=== PATIENT | male | born 1955 | race Two or more races ===

== ENCOUNTER 2024-02-13 08:45 | Emergency (ER) | payer OTHER ==
[~2024-02-13] VITALS: Ht 162.6 cm; Wt 72.1 kg
[2024-02-13 09:10] VITALS: PULSE 80; RESP 13; O2SAT 98
[2024-02-13] MEDS: hydrALAZINE HCL 20 MG/ML VL IV ONE (09:26)
[2024-02-13 09:33] LABS: Basophils # (auto) 0.1 10 ^3/uL (0-0.2); Basophils % (auto) 0.7 % (0.0-2.0); Eosinophils # (auto) 0.1 10 ^3/uL (0-0.8); Eosinophils % (auto) 0.9 % (0.0-7.0); Hematocrit 45.3 % (41.0-53.0); Lymphocytes # (auto) 1.6 10 ^3/uL (0.4-5.4); Lymphocytes % (auto) 18.7 % (10.0-50.0); Mean Corpuscular Hgb Conc. 35.3 g/dL (32.0-36.0); Mean Corpuscular Volume 90.5 fL (80.0-100.0); Monocytes # (auto) 0.7 10 ^3/uL (0-1.3); Neutrophils % (auto) 71.7 % (37.0-80.0); Nucleated Red Blood Cells % 0.1 %; Red Blood Cells 5.01 10^6/uL (4.5-5.90); Red Cell Distribution Width 13.5 % (11.8-14.3); White Blood Cell 8.4 10^3/uL (4.4-10.8)
[2024-02-13 09:49] LABS: Chloride 106 mmol/L (98-107); Sodium 139 mmol/L (136-145)
[2024-02-13 09:50] LABS: Anion Gap 6 (5-15); Calcium 10.5 mg/dL (8.7-10.4); Carbon Dioxide 27 mmol/L (20-30)
[2024-02-13 09:55] LABS: BUN/Creatinine Ratio 12.3 (10.0-20.0); Blood Urea Nitrogen 14 mg/dL (9-23); Glucose 107 mg/dL (74-106)
[2024-02-13] MEDS ORDERED: NITROGLYCERIN 0.4 MG SL TAB SL PRN (13:15)
[2024-02-13] MEDS ORDERED: DOCUSATE SOD 100 MG CAP PO PRN (13:15)
[2024-02-13] MEDS ORDERED: MORPHINE SULFATE INJ 2 MG/ml SYRG IV PRN (13:15)
[2024-02-13] MEDS ORDERED: ONDANSETRON HCL 4 MG/2 ML VIAL IV PRN (13:15)
[2024-02-13] MEDS ORDERED: TEMAZEPAM 15 MG CAP PO PRN (13:15)
[2024-02-13 13:22] LABS: Urine Bacteria None Seen /hpf (None Seen); Urine WBC None Seen /hpf (0 - 3)
[2024-02-13 13:27] LABS: Urine Blood Negative /uL (Negative); Urine Clarity Clear (Clear); Urine Color Light-Yellow (Yellow); Urine Protein, UAD Negative (Negative); Urine Specific Gravity 1.003 (1.001-1.035); Urine Urobilinogen Normal (Negative)
[2024-02-13 16:05] VITALS: PULSE 82; RESP 16; O2SAT 97
[2024-02-13] MEDS: hydrALAZINE HCL 20 MG/ML VL IV PRN (16:32)
[2024-02-13 19:30] VITALS: PULSE 90; RESP 21; O2SAT 96
[2024-02-13 20:57] VITALS: BP 142/82; PULSE 90; RESP 21; TEMP 97.9; O2SAT 96
== END 2024-02-13 21:04 | disposition admitted as inpatient to this hospital (09) ==
LOC: ER 08:45 → EDBD 08:45 → UNDOADMIN 13:08 → TELE 13:08 → ER 13:08
DX: I16.1 Hypertensive emergency (principal); E83.52 Hypercalcemia; E78.5 Hyperlipidemia, unspecified
CPT/HCPCS: 36415; 80048; 81001; 84484; 85025; 96374; 96376; 99285; J0360; 93005; 99291

== ENCOUNTER 2024-07-28 00:49 | Inpatient (IN) | payer OTHER, MEDICARE ==
[2024-07-28] VITALS (7 sets, daily range): BP systolic 141–160; BP diastolic 70–81; PULSE 61–88; RESP 14–18; TEMP 98–98.4; O2SAT 93–98
[~2024-07-28] VITALS: Ht 170.2 cm; Wt 77.0 kg
[2024-07-28] MEDS: ONDANSETRON HCL 4 MG/2 ML VIAL IV ONE (01:49)
[2024-07-28] MEDS: LORazepam 2MG/ML-1ML VIAL IV ONE (01:49)
[2024-07-28] MEDS: MECLIZINE HCL 25 MG TAB PO ONE (01:50)
[2024-07-28] MEDS: SODIUM CHLORIDE 0.9% 1,000 ML IV ONE (01:52)
[2024-07-28 02:14] LABS: Basophils # (auto) 0 10 ^3/uL (0-0.2); Basophils % (auto) 0.4 % (0.0-2.0); Eosinophils # (auto) 0.1 10 ^3/uL (0-0.8); Eosinophils % (auto) 0.5 % (0.0-7.0); Hematocrit 44.3 % (41.0-53.0); Lymphocytes # (auto) 1.1 10 ^3/uL (0.4-5.4); Lymphocytes % (auto) 7.7 % (10.0-50.0); Mean Corpuscular Hemoglobin 30.9 pg (28.0-32.0); Mean Corpuscular Hgb Conc. 33.8 g/dL (32.0-36.0); Mean Corpuscular Volume 91.5 fL (80.0-100.0); Monocytes # (auto) 0.8 10 ^3/uL (0-1.3); Monocytes % (auto) 5.7 % (0.0-12.0); Neutrophils # (auto) 11.7 10 ^3/uL (1.6-8.6); Neutrophils % (auto) 85.7 % (37.0-80.0); Nucleated Red Blood Cells % 0.2 %; Platelet Count (auto) 226 10^3/uL (140-450); Red Blood Cells 4.84 10^6/uL (4.5-5.90); Red Cell Distribution Width 13.2 % (11.8-14.3); White Blood Cell 13.6 10^3/uL (4.4-10.8)
[2024-07-28 02:22] LABS: Urine Bacteria None Seen /hpf (None Seen); Urine WBC None Seen /hpf (0 - 3)
[2024-07-28 02:23] LABS: Potassium 3.8 mmol/L (3.5-5.1); Sodium 144 mmol/L (136-145)
[2024-07-28 02:24] LABS: Anion Gap 8 (5-15); Calcium 10.2 mg/dL (8.7-10.4); Carbon Dioxide 28 mmol/L (20-31)
[2024-07-28 02:27] LABS: Chloride 108 mmol/L (98-107)
[2024-07-28 02:32] LABS: Urine Blood Negative /uL (Negative); Urine Budding Yeast OCCASIONAL /hpf (None Seen); Urine Clarity Turbid (Clear); Urine Color Light-Yellow (Yellow); Urine Protein, UAD Negative (Negative); Urine Specific Gravity 1.017 (1.001-1.035); Urine Squamous Epithelial Cell None Seen /hpf (<5); Urine Urobilinogen Normal (Negative)
[2024-07-28 02:32] LABS: Blood Urea Nitrogen 26 mg/dL (9-23); Glucose 132 mg/dL (74-106)
--- NOTE | 2024-07-28 02:35 | ED.PDOC ---
History of Present Illness HPI Comments 69-year-old male brought in by EMS due to dizziness. Patient has history of hypertension and vertigo. Patient states he woke up from sleep late afternoon, felt like the room was spinning, causing him to fall to the floor. Patient states he was too dizzy to ambulate, so crawled to the restroom and vomited multiple times. He states any head or eye movement reproduces the symptoms and causes nausea and vomiting. He denies any pain, diarrhea, constipation, dysuria, sick contacts or fever. He denies any focal weakness. Blood pressure upon arrival was 185/79 mmHg Chief Complaint: Dizziness Time Seen by MD: 02:35 Primary Care Provider: MAGNOLIA Reviewed Notes: Nurses Notes Allergies: Coded Allergies: NO KNOWN ALLERGIES (Unverified , 02/13/24) Information Source: Patient Mode of Arrival: EMS Severity: Moderate Timing: Hours Duration: Since onset Prehospital treatment: None Past Medical History PAST MEDICAL HISTORY: High Lipids, HTN Past Medical History (Other): Vertigo Surgical History: Appendectomy Family History Family History: Reviewed,noncontributory to illness Social History Smoker: Non-Smoker Alcohol: Denies ETOH Use Drugs: Denies Drug Use Lives In: Home Constitutional: denies: chills, diaphoresis, fatigue, fever, malaise, sweats, weakness, others EENTM: denies: blurred vision, double vision, ear bleeding, ear discharge, ear drainage, ear pain, ear ringing, eye pain, eye redness, hearing loss, mouth pain, mouth swelling, nasal discharge, nose bleeding, nose congestion, nose pain, photophobia, tearing, throat pain, throat swelling, voice changes, others Respiratory: denies: cough, hemoptysis, orthopnea, SOB at rest, shortness of breath, SOB with excertion, stridor, wheezing, others Cardiovascular: denies: chest pain, dizzy spells, diaphoresis, Dyspnea on exertion, edema, irregular heart beat, left arm pain, lightheadedness, palpitations, PND, syncope, others Gastrointestinal: reports: nausea, vomiting; denies: abdomen distended, abdomin al pain, blood streaked bowels, constipated, diarrhea, dysphagia, difficulty swallowing, hematemesis, melena, poor appetite, poor fluid intake, rectal bleeding, rectal pain, others Genitourinary: denies: burning, dysuria, flank pain, frequency, hematuria, incontinence, penile discharge, penile sore, pain, testicle pain, testicle swelling, urgency, others Neurological: reports: dizziness; denies: fainting, headache, left sided numbness, left sided weakness, numbness, paresthesia, pre-existing deficit, right sided numbness, right sided weakness, seizure, speech problems, tingling, tremors, weakness, others Musculoskeletal: denies: back pain, gout, joint pain, joint swelling, muscle pain, muscle stiffness, neck pain, others Integumetry: denies: bruises, change in color, change in hair/nails, dryness, laceration, lesions, lumps, rash, wounds, others Allergic/Immunocompromised: denies: Difficulty Healing, Frequent Infections, Hives, Itching, others Hematologic/Lymphatic: denies: anemia, blood clots, easy bleeding, easy bruising, swollen glands, others Endocrine: denies: excessive hunger, excessive sweating, excessive thirst, excessive urination, flushing, intolerance to cold, intolerance to heat, unexplained weight gain, unexplained weight loss, others Psychiatric: denies: anxiety, bipolar disorder, depression, hopeless, panic disorder, schizophrenia, sleepless, suicidal, others Physical Exam General Appearance: Mild Distress HEENT: PERRL/EOMI, Other (Dry mucous membranes) Neck: Full Range of Motion, Normal Inspection Respiratory: Lungs Clear, No Accessory Muscle Use, No Respiratory Distress, Normal Breath Sounds Cardiovascular: No Edema, No JVD, Regular Rate/Rhythm Breast Exam: Deferred Gastrointestinal: Non Tender, Soft Genitalia: Deferred Pelvic: Deferred Rectal: Deferred Extremities: Normal inspection, Normal range of motion, Non-tender, No pedal edema Neurologic: Alert (Oriented x4), Normal Affect, Normal Mood, Other (Moves all extremities with adequate strength and tone. No gross focal deficit. Head movement reproduces dizziness and nausea. Lateral nystagmus.) Cerebellar Function: NOT DONE Reflexes: NOT DONE Skin: Dry, Normal Color, Warm Lymphatic: NOT DONE Was a procedure done? Was a procedure done?: No EKG EKG : Comments Sinus rhythm, rate 60, normal VA interval, QRS 161, QTC normal, normal axis, right bundle-branch block, nonspecific T change. Differential Dx Considerations may include: CVA, TIA, positional vertigo, anemia, infection, electrolyte imbalance, arrhythmia, among others X-Ray, Labs, Meds, VS Vital Signs Date Time Temp Pulse Resp B/P (MAP) Pulse Ox O2 Delivery O2 Flow Rate FiO2 07/28/24 03:00 58 13 144/65 (91) 92 07/28/24 01:30 16 98 Room Air* 0 21 07/28/24 01:21 97.6 60 16 185/79 (114) 96 97.6 07/28/24 00:54 98.7 60 18 168/81 (110) 99 07/28/24 00:52 60 Lab Test 07/28/24 02:52 07/28/24 01:50 07/28/24 00:08 Range/Units Troponin I High Sensitivity 7 10 </=54 ng/L White Blood Count 13.6 H 4.4-10.8 10^3/uL Red Blood Count 4.84 4.5-5.90 10^6/uL Hemoglobin 15.0 13.5-17.5 g/dL Hematocrit 44.3 41.0-53.0 % Mean Corpuscular Volume 91.5 80.0-100.0 fL Mean Corpuscular Hemoglobin 30.9 28.0-32.0 pg Mean Corpuscular Hemoglobin Concent 33.8 32.0-36.0 g/dL Red Cell Distribution Width 13.2 11.8-14.3 % Platelet Count 226 140-450 10^3/uL Mean Platelet Volume 9.0 6.9-10.8 fL Neutrophils (%) (Auto) 85.7 H 37.0-80.0 % Lymphocytes (%) (Auto) 7.7 L 10.0-50.0 % Monocytes (%) (Auto) 5.7 0.0-12.0 % Eosinophils (%) (Auto) 0.5 0.0-7.0 % Basophils (%) (Auto) 0.4 0.0-2.0 % Neutrophils # (Auto) 11.7 H 1.6-8.6 10 ^3/uL Lymphocytes # (Auto) 1.1 0.4-5.4 10 ^3/uL Monocytes # (Auto) 0.8 0-1.3 10 ^3/uL Eosinophils # (Auto) 0.1 0-0.8 10 ^3/uL Basophils # (Auto) 0 0-0.2 10 ^3/uL Nucleated Red Blood Cells 0.2 % Sodium Level 144 136-145 mmol/L Potassium Level 3.8 3.5-5.1 mmol/L Chloride Level 108 H 98-107 mmol/L Carbon Dioxide Level 28 20-31 mmol/L Anion Gap 8 5-15 Blood Urea Nitrogen 26 H 9-23 mg/dL Creatinine 1.24 0.700-1.30 mg/dL Glomerular Filtration Rate Calc 64 >90 mL/min BUN/Creatinine Ratio 21.0 H 10.0-20.0 Serum Glucose 132 H 74-106 mg/dL Calcium Level 10.2 8.7-10.4 mg/dL B-Type Natriuretic Peptide 16.41 0-100 pg/mL Urine Color Light-yellow Yellow Urine Clarity Turbid H Clear Urine pH 8.0 5.0-9.0 Urine Specific [place] 1.017 1.001-1.035 Urine Protein Negative Negative Urine Ketones Negative Negative Urine Blood Negative Negative /uL Urine Nitrite Negative Negative Urine Bilirubin Negative Negative Urine Urobilinogen Normal Negative mg/dL Urine Leukocyte Esterase Negative Negative /uL Urine RBC 1 0 - 3 /hpf Urine WBC None seen 0 - 3 /hpf Urine Squamous Epithelial Cells None seen <5 /hpf Urine Bacteria None seen None Seen /hpf Urine Yeast (Budding) Occasional None Seen /hpf Urine Glucose Normal Normal mg/dL Current Medications Medications (Trade) Dose Ordered Sig/Erik Route Start Time Stop Time Status Last Admin Sodium Chloride 1,000 ml @ 1,000 mls/hr Q1H ONCE IV 07/28/24 01:45 07/28/24 02:44 DC 07/28/24 01:52 Ondansetron HCl (Zofran) 4 mg ONCE ONCE IV 07/28/24 01:45 07/28/24 01:46 DC 07/28/24 01:49 Lorazepam (Ativan Inj) 1 mg ONCE ONCE IV 07/28/24 01:45 07/28/24 01:46 DC 07/28/24 01:49 Meclizine HCl (Antivert Tablet) 50 mg ONCE ONCE PO 07/28/24 01:45 07/28/24 01:46 DC 07/28/24 01:50 PROCEDURE(s): HWOCT - HEAD WITHOUT CONTRAST REASON: dizziness ORDER NUMBER(s): [id number], ACCESSION NUMBER(s): [id number] Examination: HWOCT CLINICAL INDICATION: Dizziness. COMPARISON: None. CONTRAST USED: None. TECHNIQUE: The examination was performed obtaining 5 mm slices without contrast. CT scan done according to ALARA (As Low as Reasonably Achievable). Multiplanar reconstructions were obtained. FINDINGS: SUPRATENTORIAL BRAIN: Cerebral Hemispheres: Age appropriate neuroparenchymal volume loss is seen. There is no midline shift or mass effect, intra or extra-axial fluid collections or hemorrhage. Periventricular White Matter/Basal Ganglia: Periventricular and deep white matter small vessel ischemic changes are seen. No abnormal areas of altered attenuation within the basal ganglia. POSTERIOR FOSSA: The brainstem is normal and the visualized cerebellar hemispheres are unremarkable. VENTRICULAR SYSTEM: The ventricular system shows slight ex vacuo prominence. There is no evidence of hydrocephalus or transependymal flow of cerebrospinal fluid. SKULL BASE AND PARASELLAR REGION: The skull base is normal with no parasellar masses or abnormalities identified. CALVARIUM AND SCALP REGION: No abnormality is seen. PARANASAL SINUSES: There is a small mucosal polyp in the right maxillary sinus. Rest of the paranasal sinuses are unremarkable. IMPRESSION: 1. No acute intracranial abnormality detected. 2. Age-related cerebral atrophy and small vessel ischemic changes. 3. Right maxillary sinus polyp. Electronically Signed 07/28/2024 03:03 Dima Kilgore X-Ray, Labs, Meds, VS Comment 69-year-old male with a history of hypertension, hyperlipidemia and vertigo complaining of severe dizziness, nausea and vomiting Vitals remarkable for BP 168/81 Exam remarkable for lateral nystagmus and reproducible dizziness symptoms with head movement Rhythm strip independently interpreted by me: Sinus rhythm, rate 60, no ectopy. CT head without contrast: IMPRESSION: 1. No acute intracranial abnormality detected. 2. Age-related cerebral atrophy and small vessel ischemic changes. 3. Right maxillary sinus polyp. CBC remarkable for WBC 13.6, basic metabolic panel remarkable for BUN 26, BNP and serial troponins unremarkable Patient treated with the following in the ED: 1 L 0.9 normal saline IV bolus, Zofran 4 mg IV, meclizine 50 mg p.o., Ativan 1 mg IV On re-evaluation, patient states he feels a little bit better, however is still experiencing dizziness and nausea with head movement. There have been no new focal neurologic changes. Plan is to admit the patient for symptomatic treatment, brain MRI in the morning and neurology evaluation. Time of 1ST Reevaluation: 02:16 Reevaluation 1ST: Unchanged Patient Education/Counseling: Diagnosis, Treatment Family Education/Counseling: No Family Present Departure 1 Departure Time of Disposition: 04:49 Impression: Primary Impression: Vertigo Additional Impression: Nausea and vomiting Qualified Codes: R11.2 - Nausea with vomiting, unspecified Disposition: 09 ADMITTED INPATIENT Admit to: Tele Condition: Guarded Critical Care Note Critical Care Time?: No Stability Stability form required: No Heart Score Heart Score: Heart Score Response (Comments) Value History N/A 0 EKG N/A 0 Age N/A 0 Risk Factors N/A 0 Troponin N/A 0 Total 0 I personally scribed for FREDERIC HARDING MD ([email or web address]) on 07/28/24 at 02:35. Electronically submitted by Dallas Marshall ([facility]). FREDERIC HARDING MD Jul 28, 2024 02:35
--- NOTE | 2024-07-28 03:03 | DVH ---
Examination: HWOCT CLINICAL INDICATION: Dizziness. COMPARISON: None. CONTRAST USED: None. TECHNIQUE: The examination was performed obtaining 5 mm slices without contrast. CT scan done accor ding to ALARA (As Low as Reasonably Achievable). Multiplanar reconstructions were obtained. FINDINGS: SUPRATENTORIAL BRAIN: Cerebral Hemispheres: Age appropriate neuroparenchymal volume loss is seen. There is no midline shift or mass effect, intra or extra-axial fluid collections or hemorrhage. Periventricular White Matter/Basal Ganglia: Periventricular and deep white matter small vessel ischem ic changes are seen. No abnormal areas of altered attenuation within the basal ganglia. POSTERIOR FOSSA: The brainstem is normal and the visualized cerebellar hemispheres are unremarkable. VENTRICULAR SYSTEM: The ventricular system shows slight ex vacuo prominence. There is no evidence of hydrocephalus or transependymal flow of cerebrospinal fluid. SKULL BASE AND PARASELLAR REGION: The skull base is normal with no parasellar masses or abnormalities identified. CALVARIUM AND SCALP REGION: No abnormality is seen. PARANASAL SINUSES: There is a small mucosal polyp in the right maxillary sinus. Rest of the paranasal sinuses are unremarkable. IMPRESSION: 1. No acute intracranial abnormality detected. 2. Age-related cerebral atrophy and small vessel ischemic changes. 3. Right maxillary sinus polyp. Electronically Signed 07/28/2024 03:03 Dima Kilgore
--- NOTE | 2024-07-28 07:11 | ECG ---
[facility] Test Date: 2024-07-28 Test Time: 00:52:38 Pat Name: JUAN JOSE STRAUSS Department: ER Room: 0287 Gender: M Overnight Caregiver: CAITIE : 1955 Requested By: FREDERIC BECK Order Number: [id number] Reading MD: Bandar Irwin Measurements Intervals [place] Rate: 60 P: 16 IL: 186 QRS: 0 QRSD: 161 T: 24 QT: 449 QTc: 449 Interpretive Statements Sinus rhythm Right bundle branch block Electronically Signed On 07-28-2024 13:14:36 PST by Bandar Irwin Please click the below link to view image of tracing.
[2024-07-28] MEDS ORDERED: VANCOMYCIN PER PHARMACY 0 MG IV SCH (09:00)
[2024-07-28] MEDS ORDERED: HYDROcodone-ACET 5/325MG TAB PO PRN (09:00)
[2024-07-28] MEDS ORDERED: MORPHINE SULFATE INJ 2 MG/ml SYRG IV PRN (09:00)
--- NOTE | 2024-07-28 09:07 | DVHHP2 ---
History of Present Illness Reason for Visit: Abdominal pain, nausea, vomiting, diarrhea, dizziness, lightheadedness History of Present Illness Roberto Carlos Amador is a 69-year-old male with past medical history of hypertension, hyperlipidemia, anxiety, vertigo, and appendectomy who presents to the ED for nausea, vomiting, diarrhea, abdominal pain, dizziness, and lightheadedness since 11:00 p.m. last night. Reports that he woke up from sleep he fell onto the floor did not hit his head crawled to the bathroom and started vomiting. He reported that he had a total of 7 episodes of vomiting of food contents and clear liquids with no blood. Patient states that last night he had [place] food that he had not visited before and thinks that he ate spoiled food. Patient also reports that he had history of vertigo over 15 years ago and took some meclizine to help. Denies any chest pain, shortness of breath, fever, chills, , recent sick contacts, recent travels and weakness. Cardiovascular: HTN, hyperipidemia [employer]ILDING [employer]: Vertigo Past Surgical History: Appendectomy Family History: None Smoke: No ALCOHOL: occassional Drugs: None Lives: Alone Domestic Violence: Neg Review of Systems Constitutional: Yes: Other (Dizziness); No: Fever, Chills, Sweats, Weakness, Malaise Eyes: No: Pain, Vision change, Conjunctivae inflammation, Eyelid inflammation, Other, Redness ENT: No: Ear pain, Ear discharge, Nose pain, Nose discharge, Nose congestion, M outh pain, Mouth swelling, Throat pain, Throat swelling, Other Respiratory: No: Cough, Dry, Shortness of breath, SOB with excertion, Wheezing, Hemoptysis, Pleuritic Pain, Sputum, Wheezing, Other Cardiovascular: Lt Headedness; No: Chest Pain, Palpitations, Orthopnea, Paroxysmal Noc. Dyspnea, Edema, Other Gastrointestinal: Nausea, Vomiting, Abdominal Pain, Diarrhea; No: Constipation, Melena, Hematochezia, Other Genitourinary: No Dysuria, No Frequency, No Incontinence, No Hematuria, No R etention, No Other Musculoskeletal: No: other, neck pain, shoulder pain, arm pain, back pain, hand pain, leg pain, foot pain Skin: No: Rash, Lesions, Jaundice, Bruising, Other Neurological: No: Weakness, Numbness, Incoordination, Change in speech, Confusion, Seizures, Other Allergies: Coded Allergies: NO KNOWN ALLERGIES (Unverified , 02/13/24) Exam Vital Signs Vital Signs Date Time Temp Pulse Resp B/P (MAP) Pulse Ox O2 Delivery O2 Flow Rate FiO2 07/28/24 08:00 62 16 14/68 (50) 97 07/28/24 07:30 Room Air* 0 21 07/28/24 01:21 97.6 97.6 General Appearance: Alert, Oriented X3, Cooperative, No acute distress HEENT: Atraumatic, PERRLA, EOMI, Mucous membr. moist/pink Respiratory: Clear to auscultation, Normal air movement Cardiovascular: Regular rate, Normal S1, Normal S2, No murmurs Abdominal: Soft, No hepatospenomegaly, No masses Extremities: No clubbing, No cyanosis, No edema, Normal pulses, No tenderness/swelling Skin: No rashes, No breakdown, No significant lesion Neuro: Normal gait, Normal speech, Strength at 5/5 X4 ext, Normal tone, Sensation intact Psych/Mental Status: Mental status NL, Mood NL Labs/Xrays Labs Test 07/28/24 02:52 07/28/24 01:50 07/28/24 00:08 Range/Units Troponin I High Sensitivity 7 </=54 ng/L White Blood Count 13.6 H 4.4-10.8 10^3/uL Red Blood Count 4.84 4.5-5.90 10^6/uL Hemoglobin 15.0 13.5-17.5 g/dL Hematocrit 44.3 41.0-53.0 % Mean Corpuscular Volume 91.5 80.0-100.0 fL Mean Corpuscular Hemoglobin 30.9 28.0-32.0 pg Mean Corpuscular Hemoglobin Concent 33.8 32.0-36.0 g/dL Red Cell Distribution Width 13.2 11.8-14.3 % Platelet Count 226 140-450 10^3/uL Mean Platelet Volume 9.0 6.9-10.8 fL Neutrophils (%) (Auto) 85.7 H 37.0-80.0 % Lymphocytes (%) (Auto) 7.7 L 10.0-50.0 % Monocytes (%) (Auto) 5.7 0.0-12.0 % Eosinophils (%) (Auto) 0.5 0.0-7.0 % Basophils (%) (Auto) 0.4 0.0-2.0 % Neutrophils # (Auto) 11.7 H 1.6-8.6 10 ^3/uL Lymphocytes # (Auto) 1.1 0.4-5.4 10 ^3/uL Monocytes # (Auto) 0.8 0-1.3 10 ^3/uL Eosinophils # (Auto) 0.1 0-0.8 10 ^3/uL Basophils # (Auto) 0 0-0.2 10 ^3/uL Nucleated Red Blood Cells 0.2 % Sodium Level 144 136-145 mmol/L Potassium Level 3.8 3.5-5.1 mmol/L Chloride Level 108 H 98-107 mmol/L Carbon Dioxide Level 28 20-31 mmol/L Anion Gap 8 5-15 Blood Urea Nitrogen 26 H 9-23 mg/dL Creatinine 1.24 0.700-1.30 mg/dL Glomerular Filtration Rate Calc 64 >90 mL/min BUN/Creatinine Ratio 21.0 H 10.0-20.0 Serum Glucose 132 H 74-106 mg/dL Calcium Level 10.2 8.7-10.4 mg/dL B-Type Natriuretic Peptide 16.41 0-100 pg/mL Urine Color Light-yellow Yellow Urine Clarity Turbid H Clear Urine pH 8.0 5.0-9.0 Urine Specific [place] 1.017 1.001-1.035 Urine Protein Negative Negative Urine Ketones Negative Negative Urine Blood Negative Negative /uL Urine Nitrite Negative Negative Urine Bilirubin Negative Negative Urine Urobilinogen Normal Negative mg/dL Urine Leukocyte Esterase Negative Negative /uL Urine RBC 1 0 - 3 /hpf Urine WBC None seen 0 - 3 /hpf Urine Squamous Epithelial Cells None seen <5 /hpf Urine Bacteria None seen None Seen /hpf Urine Yeast (Budding) Occasional None Seen /hpf Urine Glucose Normal Normal mg/dL Examination: HWOCT CLINICAL INDICATION: Dizziness. COMPARISON: None. CONTRAST USED: None. TECHNIQUE: The examination was performed obtaining 5 mm slices without contrast. CT scan done according to ALARA (As Low as Reasonably Achievable). Multiplanar reconstructions were obtained. FINDINGS: SUPRATENTORIAL BRAIN: Cerebral Hemispheres: Age appropriate neuroparenchymal volume loss is seen. There is no midline shift or mass effect, intra or extra-axial fluid collections or hemorrhage. Periventricular White Matter/Basal Ganglia: Periventricular and deep white matter small vessel ischemic changes are seen. No abnormal areas of altered attenuation within the basal ganglia. POSTERIOR FOSSA: The brainstem is normal and the visualized cerebellar hemispheres are unremarkable. VENTRICULAR SYSTEM: The ventricular system shows slight ex vacuo prominence. There is no evidence of hydrocephalus or transependymal flow of cerebrospinal fluid. SKULL BASE AND PARASELLAR REGION: The skull base is normal with no parasellar masses or abnormalities identified. CALVARIUM AND SCALP REGION: No abnormality is seen. PARANASAL SINUSES: There is a small mucosal polyp in the right maxillary sinus. Rest of the paranasal sinuses are unremarkable. IMPRESSION: 1. No acute intracranial abnormality detected. 2. Age-related cerebral atrophy and small vessel ischemic changes. 3. Right maxillary sinus polyp. Assessment/Plan Assessment/Plan Assessment/Plan: Intractable abdominal pain Vertigo Leukocytosis Meclizine Ativan given ER Antiemetics NS given ER Troponins negative x2 CT head negative EKG UA negative BNP CT abdomen and pelvis Labs A.m. labs IV antibiotics-vancomycin and Zosyn neuro consult - patient c/o dizziness rounding team to consider MRI if no improvement in symptoms Chronic hypertension Continue home medications Hyperlipidemia Continue home medications Chronic anxiety Continue home medications FEN/PPX diet hl DVT prophylaxis not indicated patient ambulating PUD prophylaxis - protonix Admit to med surg Home medications reconciled Discussed plan of care with patient and nurse Plan discussed with: Patient Date of Service: Jul 28, 2024 Billing Provider: ROSE MARY OSORIO Common Visit Codes: [id number] INP/OBS CARE (HIGH) ROSE MARY OSORIO Jul 28, 2024 09:07
[2024-07-28] MEDS: MECLIZINE HCL 25 MG TAB PO PRN (09:17)
[2024-07-28] MEDS: PANTOPRAZOLE 40 MG/10 ML VIAL INJ IV SCH (09:17)
[2024-07-28] MEDS: VANCOMYCIN 1.25GM/250ML 250 ML IV ONE (09:17)
[2024-07-28] MEDS: PIPERACILLIN-TAZOB 3.375GM 100 ML IV ONE (09:18)
[2024-07-28] MEDS: ONDANSETRON HCL 4 MG/2 ML VIAL IV PRN (09:37)
--- NOTE | 2024-07-28 09:59 | DVH ---
Exam: CT CT AB PEL WO CON-NO ORAL OR IV History: abd pain Comparison Study: None Technique: Multidetector spiral CT of the abdomen and pelvis was performed from lung bases to pubic symphysis. Imaging was performed without IV contrast. Axial, coronal and sagittal multiplanar reform ats were obtained from the axial data set by the technologist. Radiation dose : Abdomen/Pelvis: CTDIvol 14 mGy, DLP 863.4 mGy*cm. Findings: Evaluation of solid organs is limited due to lack of intravenous contrast use. Lung Bases: Mild atelectasis and consolidation in the lung bases. Liver: The liver is normal in size. No focal lesions. Gallbladder and biliary Tree: Unremarkable Spleen: Unremarkable Pancreas: The pancreas is grossly normal in appearance. Adrenal Glands: Unremarkable Kidneys: Mild perinephric stranding bilaterally. No hydronephrosis or nephrolithiasis. Bladder: Grossly unremarkable for degree of distention. Bowel: The stomach is grossly normal in appearance. Small bowel and colon are normal in caliber and d istribution. The appendix is not visualized; however, no secondary findings of acute appendicitis id entified. Ascites: Absent Lymphadenopathy: No mesenteric, retroperitoneal or periportal lymphadenopathy. Abdominal wall and Mesentery: Unremarkable. Vasculature: The visualized abdominal aorta is normal in size and caliber. Evaluation of abdominal a nd pelvic vessels is limited due to lack of intravenous contrast. Pelvic Organs: Unremarkable Musculoskeletal: No aggressive focal bony lesions, acute fractures or dislocation. IMPRESSION: 1. No acute abdominal or pelvic findings. Mild perinephric stranding bilaterally. No hydronephrosis o r nephrolithiasis. Mild bibasilar atelectasis and consolidation. If concern persists consider further evaluation with contrast. Radiation optimization: All CT scans at this facility use at least one of these dose optimization precious hniques: Automated exposure control mA and/or kV adjustment per patient size (includes targeted exams where dose is matched to clinical indication) or iterative reconstruction. HS:Y
[2024-07-28] MEDS: PIPERACILLIN-TAZOB 3.375GM 100 ML IV SCH (14:29)
--- NOTE | 2024-07-28 18:50 | DVHINCON2 ---
Date of service: Jul 28, [address] Amezquita Reason for Consultation Vertigo History of Present Illness Mr. Amador is a 69 years old right-handed gentleman with a history of hypertension, dyslipidemia, he was admitted to the [facility] on 07/28/2024 with a chief company of dizziness. At this time, he is alert and fully oriented, he provided the following history In the evening at 07/27/2024 11pm, he woke up with operative spinning around him, when he was trying to get up bed, he collapsed because of poor imbalance, the patient crawled to the bathroom and, he also developed nausea, vomiting, history he called his daughter and then ambulance. He reports a intense dizziness/spinning sensation per status he 5:00 p.m. on 07/28/2024, and gradually resolved after 6:00 p.m. on 07/28/2024. He was noticed opening the eye or he has activity, being moved worsened the dizziness. The patient was denied focal weakness numbness, vision changes, hearing changes. He was mild left temporal headache during daytime on 07/27/2024 Around [id number], he had a similar intense spinning sensation lasted for 5-6 hours, but he was able to walk during that attack Around the age of 32, the patient was developed periodic intense headache with associated sensitivity to lights, noise, nausea, the headache typically lasts for 3 hours because he always took ibuprofen. The headache happened to 2 times monthly, with the last one around 2018. There is no warning/aura before the headache. His daughters have headache, but he does not know the details, otherwise is not aware of family history of headache Urinalysis, 07/28/2024: Unremarkable WBC/HB/PLT/MCV, 07/28/2024: 13.6/15/226/91.5 BMP, 07/28/2024: Unremarkable CT head, 07/28/2024: 1. No acute intracranial abnormality detected. 2. Age- related cerebral atrophy and small vessel ischemic changes. 3. Right maxillary sinus polyp Past Medical History Hypertension, dyslipidemia, anxiety Past Surgical History Appendectomy Family History: Patient reports no known family medical history. Family History Hypertension Social History He has not tobacco smoke, he denies a history of alcohol or recreational argueta bstance abuse Allergies: Coded Allergies: NO KNOWN ALLERGIES (Unverified , 02/13/24) Current Medications Current Medications Medications (Trade) Dose Ordered Sig/Erik Route PRN Reason Start Time Stop Time Status Last Admin Vancomycin HCl 0 ml @ 0 mls/hr UD IV 07/28/24 09:00 Piperacillin Sod/ Tazobactam Sod 100 ml @ 25 mls/hr Q8HR IV 07/28/24 14:00 07/28/24 14:29 Acetaminophen/ Hydrocodone Bitart ([place] 5/325MG Tab) 1 tab Q4HP PRN PO MODERATE PAIN (4-6 PAIN SCALE) 07/28/24 09:00 Ondansetron HCl (Zofran) 4 mg Q4HP PRN IV NAUSEA / VOMITING 07/28/24 09:00 07/28/24 17:02 DC 07/28/24 14:32 Acetaminophen (Tylenol Tablet) 650 mg Q6HP PRN PO PAIN SCALE 1-3 OR TEMP>100.4 07/28/24 09:00 Morphine Sulfate 2 mg Q4HPRN PRN IV SEVERE PAIN (7-10 PAIN SCALE) 07/28/24 09:00 Pantoprazole Sodium (Protonix) 40 mg DAILY IV 07/28/24 10:00 07/28/24 09:17 Meclizine HCl (Antivert Tablet) 50 mg Q4HPRN PRN PO DIZZINESS 07/28/24 09:15 07/28/24 14:32 Vancomycin HCl 750 mg/Dextrose 100 ml @ 100 mls/hr Q12H IV 07/28/24 21:00 Metoclopramide HCl (Reglan Injection) 5 mg Q6HR PRN IV NAUSEA / VOMITING 07/28/24 17:00 Review of Systems As above, the other systems are Vital Signs Vital Signs Date Time Temp Pulse Resp B/P (MAP) Pulse Ox O2 Delivery O2 Flow Rate FiO2 07/28/24 16:20 98.1 73 14 141/70 (93) 93 98.1 07/28/24 11:30 Room Air* 0 21 Physical Exam GENERAL EXAM: General: the patient is well developed and nourished. No acute distress. HEENT: Normocephalic, neck is supple, no carotid bruits. No mass. e RESPIRATORY: Normal respiratory effort with symmetrical lung expansion. Lungs clear to auscultation. CARDIOVASCULAR: Regular rate and rhythm with no murmurs. S1, S2. ABDOMEN: Soft, nontender, normal bowel sound NEUROLOGICAL: MENTAL STATUS: Awake and alert. Oriented to person, place, time and general circ umstances. Able to give personal history SPEECH, LANGUAGE, HIGHER CORTICAL FUNCTION: no aphasia or dysathria. CRANIAL NERVES: #2: Intact visual lanier to confrontation. The optic discs were sharp #3,4,6: Pupils are equal, round and reactive. EOMs full and conjugate. No nystagmus. #5: Facial sensation intact in all three divisions bilaterally. Mandibular strength intact. #7: Facial muscles symmetrical and strength intact. #8: Hearing grossly normal to voice. #9,10: Uvula and soft palate rise in the midline. Swallow and voice are normal. #11: Trapezius and sternomastoid strength intact bilaterally. #12: Tongue midline. No fasciculations or atrophy. SENSATION: Sensation to touch and pinprick is normal. MOTOR: Normal tone in the upper and lower extremity. Normal muscle bulk. No fasciculations. No abnormal movements or posturing. Muscle strength of the major groups in the upper extremities is 5/5. Muscle strength of the major groups in the lower extremities is 5/5. REFLEXES: Deep tendon reflexes are symmetrical. No pathological reflexes. CEREBELLAR/COORDINATION: Finger to nose ise normal bilaterally. GAIT/STATION: deferred Labs/Diagnostic Data Labs Test 07/28/24 02:52 07/28/24 01:50 07/28/24 00:08 Range/Units Troponin I High Sensitivity 7 </=54 ng/L White Blood Count 13.6 H 4.4-10.8 10^3/uL Red Blood Count 4.84 4.5-5.90 10^6/uL Hemoglobin 15.0 13.5-17.5 g/dL Hematocrit 44.3 41.0-53.0 % Mean Corpuscular Volume 91.5 80.0-100.0 fL Mean Corpuscular Hemoglobin 30.9 28.0-32.0 pg Mean Corpuscular Hemoglobin Concent 33.8 32.0-36.0 g/dL Red Cell Distribution Width 13.2 11.8-14.3 % Platelet Count 226 140-450 10^3/uL Mean Platelet Volume 9.0 6.9-10.8 fL Neutrophils (%) (Auto) 85.7 H 37.0-80.0 % Lymphocytes (%) (Auto) 7.7 L 10.0-50.0 % Monocytes (%) (Auto) 5.7 0.0-12.0 % Eosinophils (%) (Auto) 0.5 0.0-7.0 % Basophils (%) (Auto) 0.4 0.0-2.0 % Neutrophils # (Auto) 11.7 H 1.6-8.6 10 ^3/uL Lymphocytes # (Auto) 1.1 0.4-5.4 10 ^3/uL Monocytes # (Auto) 0.8 0-1.3 10 ^3/uL Eosinophils # (Auto) 0.1 0-0.8 10 ^3/uL Basophils # (Auto) 0 0-0.2 10 ^3/uL Nucleated Red Blood Cells 0.2 % Sodium Level 144 136-145 mmol/L Potassium Level 3.8 3.5-5.1 mmol/L Chloride Level 108 H 98-107 mmol/L Carbon Dioxide Level 28 20-31 mmol/L Anion Gap 8 5-15 Blood Urea Nitrogen 26 H 9-23 mg/dL Creatinine 1.24 0.700-1.30 mg/dL Glomerular Filtration Rate Calc 64 >90 mL/min BUN/Creatinine Ratio 21.0 H 10.0-20.0 Serum Glucose 132 H 74-106 mg/dL Calcium Level 10.2 8.7-10.4 mg/dL B-Type Natriuretic Peptide 16.41 0-100 pg/mL Urine Color Light-yellow Yellow Urine Clarity Turbid H Clear Urine pH 8.0 5.0-9.0 Urine Specific [place] 1.017 1.001-1.035 Urine Protein Negative Negative Urine Ketones Negative Negative Urine Blood Negative Negative /uL Urine Nitrite Negative Negative Urine Bilirubin Negative Negative Urine Urobilinogen Normal Negative mg/dL Urine Leukocyte Esterase Negative Negative /uL Urine RBC 1 0 - 3 /hpf Urine WBC None seen 0 - 3 /hpf Urine Squamous Epithelial Cells None seen <5 /hpf Urine Bacteria None seen None Seen /hpf Urine Yeast (Budding) Occasional None Seen /hpf Urine Glucose Normal Normal mg/dL Assessment Dizziness/vertigo Migraine headache equivalent Rule out stroke and other central nervous system pathology History is of headache, he may have migraine headache without aura Plan/Recommendation Monitoring Supportive treatment Telemetry MR brain scan Meclizine as needed basis More recommendation per clinical course This medical document was created using an electronic medical record system with [employer] computerized dictation system. Although this document has been carefully reviewed, there may still be some phonetic and typographical errors. These areas are purely typographical due to imperfections of the software programs, and do not reflect any compromise in the patient's medical care. Plan discussed with: Patient, Other KYRA DORADO MD Jul 28, 2024 18:50
[2024-07-28] MEDS ORDERED: LORazepam 2MG/ML-1ML VIAL IV PRN (19:30)
[2024-07-28] MEDS: VANCOMYCIN 750MG VIAL 750 MG in D5W 5% 100 ML IV SCH (21:22)
[2024-07-28] MEDS: METOCLOPRAMIDE HCL 5MG/ml INJ 2ml VIAL IV PRN (21:22)
[2024-07-29] VITALS (7 sets, daily range): BP systolic 132–161; BP diastolic 72–86; PULSE 57–88; RESP 14–18; TEMP 97.9–98.7; O2SAT 92–97
[2024-07-29 08:41] LABS: Basophils # (auto) 0 10 ^3/uL (0-0.2); Basophils % (auto) 0.2 % (0.0-2.0); Eosinophils # (auto) 0.1 10 ^3/uL (0-0.8); Eosinophils % (auto) 1.3 % (0.0-7.0); Hematocrit 39.1 % (41.0-53.0); Hemoglobin 13.5 g/dL (13.5-17.5); Lymphocytes # (auto) 1.6 10 ^3/uL (0.4-5.4); Lymphocytes % (auto) 16.7 % (10.0-50.0); Mean Corpuscular Hemoglobin 31.6 pg (28.0-32.0); Mean Corpuscular Hgb Conc. 34.6 g/dL (32.0-36.0); Mean Corpuscular Volume 91.3 fL (80.0-100.0); Monocytes # (auto) 0.6 10 ^3/uL (0-1.3); Monocytes % (auto) 6.1 % (0.0-12.0); Neutrophils # (auto) 7.3 10 ^3/uL (1.6-8.6); Neutrophils % (auto) 75.7 % (37.0-80.0); Platelet Count (auto) 192 10^3/uL (140-450); Red Blood Cells 4.28 10^6/uL (4.5-5.90); White Blood Cell 9.7 10^3/uL (4.4-10.8)
[2024-07-29 10:27] LABS: Alanine Aminotransferase 17 U/L (7-40); Albumin 3.7 g/dL (3.2-4.8); Alkaline Phosphatase 56 U/L (46-116); Anion Gap 6 (5-15); Aspartate Aminotransferase 14 U/L (13-40); BUN/Creatinine Ratio 15.1 (10.0-20.0); Bilirubin, Total 0.7 mg/dL (0.2-1.0); Blood Urea Nitrogen 18 mg/dL (9-23); Calcium 9.3 mg/dL (8.7-10.4); Carbon Dioxide 26 mmol/L (20-31); Sodium 143 mmol/L (136-145); Total Protein 5.7 g/dL (5.7-8.2)
[2024-07-29 10:29] LABS: Chloride 111 mmol/L (98-107); Glucose 128 mg/dL (74-106); Potassium 3.4 mmol/L (3.5-5.1)
--- NOTE | 2024-07-29 11:27 | DVHPN2 ---
Reviewed: Care Plan, H&P, Labs, Medications, Previous Orders, Radiology Changes from previous H/P or p: No Changes Eyes: No Pain, No Vision change, No Conjunctivae inflammation, No Eyelid inflammation, No Other, No Redness ENT: No Ear pain, No Ear discharge, No Nose pain, No Nose discharge, No Nose congestion, No Mouth pain, No Mouth swelling, No Throat pain, No Throat swelling, No Other Cardiovascular: No Chest Pain, No Palpitations, No Orthopnea, No Paroxysmal Noc. Dyspnea, No Edema; Lt Headedness; No Other Respiratory: No Cough, No Dry, No Shortness of breath, No SOB with excertion, No Wheezing, No Hemoptysis, No Pleuritic Pain, No Sputum, No Other Gastrointestinal: Nausea, Vomiting, Abdominal Pain, Diarrhea; No Constipation, No Melena, No Hematochezia, No Other Genitourinary: No Dysuria, No Frequency, No Incontinence, No Hematuria, No Retention, No Other Musculoskeletal: No other, No neck pain, No shoulder pain, No arm pain, No back pain, No hand pain, No leg pain, No foot pain Skin: No Rash, No Lesions, No Jaundice, No Bruising, No Other Objective Vitals Vital Signs Date Time Temp Pulse Resp B/P (MAP) Pulse Ox O2 Delivery O2 Flow Rate FiO2 07/29/24 09:00 98.0 68 16 132/72 (92) 95 98.0 07/28/24 19:30 Room Air* 0 21 Intake/Output Intake and Output 07/29/24 07:00 Intake Total 420 ml Output Total 380 ml Balance 40 ml Intake Oral 420 ml Output Urine Total 380 ml # Voids 2 Medications Current Medications Medications Dose Ordered Sig/Erik Route Start Time Stop Time Status Last Admin Dose Admin Vancomycin HCl 0 ml @ 0 mls/hr UD IV 07/28/24 09:00 Piperacillin Sod/ Tazobactam Sod 100 ml @ 25 mls/hr Q8HR IV 07/28/24 14:00 07/29/24 05:04 25 MLS/HR Acetaminophen/ Hydrocodone Bitart 1 tab Q4HP PRN PO 07/28/24 09:00 Acetaminophen 650 mg Q6HP PRN PO 07/28/24 09:00 Morphine Sulfate 2 mg Q4HPRN PRN IV 07/28/24 09:00 Pantoprazole Sodium 40 mg DAILY IV 07/28/24 10:00 07/29/24 10:08 40 MG Meclizine HCl 50 mg Q4HPRN PRN PO 07/28/24 09:15 07/28/24 14:32 50 MG Vancomycin HCl 750 mg/Dextrose 100 ml @ 100 mls/hr Q12H IV 07/28/24 21:00 07/29/24 10:08 100 MLS/HR Metoclopramide HCl 5 mg Q6HR PRN IV 07/28/24 17:00 07/28/24 21:22 5 MG Lorazepam 1 mg ONCE PRN IV 07/28/24 19:30 Laboratory Results Laboratory Tests 07/29/24 07:24 Chemistry Test 07/29/24 07:24 Albumin 3.7 g/dL (3.2-4.8) Calcium Level 9.3 mg/dL (8.7-10.4) Total Protein 5.7 g/dL (5.7-8.2) LFT Test 07/29/24 07:24 Alanine Aminotransferase (ALT) 17 U/L (7-40) Alkaline Phosphatase 56 U/L (46-116) Aspartate Amino Transferase (AST) 14 U/L (13-40) Total Bilirubin 0.7 mg/dL (0.2-1.0) Urinalysis Test 07/28/24 00:08 Urine Color Light-yellow (Yellow) Urine Clarity Turbid (Clear) H Urine pH 8.0 (5.0-9.0) Urine Specific [place] 1.017 (1.001-1.035) Urine Protein Negative (Negative) Urine Ketones Negative (Negative) Urine Blood Negative /uL (Negative) Urine Nitrite Negative (Negative) Urine Bilirubin Negative (Negative) Urine Urobilinogen Normal mg/dL (Negative) Urine Leukocyte Esterase Negative /uL (Negative) Urine RBC 1 /hpf (0 - 3) Urine WBC None seen /hpf (0 - 3) Urine Squamous Epithelial Cells None seen /hpf (<5) Urine Bacteria None seen /hpf (None Seen) Urine Yeast (Budding) Occasional /hpf (None Urine Glucose Normal mg/dL (Normal) Labs and/or images reviewed: Labs reviewed by me, Image(s) reviewed by me Assessment/Plan Assessment/Plan Sepsis secondary to community-acquired pneumonia Community-acquired pneumonia: Zosyn: Vancomycin Possible food poisoning: Continue Zosyn Acute dehydration: IV fluids History of hypertension Hypercholesterolemia Anxiety History of vertigo: Consult by Neurology Dr. Fitzgerald appreciated CT abdomen pelvis without contrast negative CT head negative Time spent 55 minutes Advanced care planning time 20 minutes Patient is full code Plan discussed with: Patient Date of Service: Jul 29, 2024 Billing Provider: STEPHANIE CAROLINA MD Common Visit Codes: [id number] INP/OBS CARE(HIGH) Secondary Visit Codes: [id number] CARE PLAN 30 MINUTES STEPHANIE CAROLINA MD Jul 29, 2024 11:27
--- NOTE | 2024-07-29 12:52 | DVH ---
EXAM: MRI BRAIN HEAD WO CONTRAST HISTORY: Vertigo, CVA COMPARISON: None TECHNIQUE: MRI was performed utilizing multiple appropriate imaging planes and pulse sequences. FINDINGS: SUPRATENTORIAL REGION: No evidence for acute ischemia or intracranial hemorrhage. Scattered ill-defi lorenzo FLAIR hyperintensities are noted within the bilateral periventricular region, cruz radiata and subcortical white matter. POSTERIOR FOSSA: Unremarkable. BRAINSTEM: Unremarkable. SELLAR/SUPRASELLAR REGION: Unremarkable. VENTRICLES, CISTERNS, SULCI: Age-appropriate. ORBITS: Unremarkable. PARANASAL SINUSES: A 2.1 cm mucous retention cyst seen in the right maxillary sinus. MASTOID AIR CELLS: Unremarkable. VASCULATURE: Unremarkable. BONES/ SOFT TISSUES: Unremarkable. OTHER: None. IMPRESSION: 1. No acute intracranial process identified. 2. Scattered nonspecific FLAIR hyperintense foci in the bilateral cerebral white matter without restr icted diffusion typically reflect chronic microvascular ischemic changes. The differential diagnosis includes hypoxic/ischemic etiologies (atherosclerotic, hypertension, migraine), inflammatory/infecti ous etiologies (demyelination disorders) or other. Recommend clinical correlation and further evalua tion as clinically warranted.
[2024-07-30] VITALS (9 sets, daily range): BP systolic 110–162; BP diastolic 70–89; PULSE 57–97; RESP 17–20; TEMP 97.4–98.4; O2SAT 94–95
[2024-07-30] MEDS: hydrALAZINE HCL 20 MG/ML VL IV PRN (01:40)
[2024-07-30] MEDS: LISINOPRIL 20 MG TAB PO SCH (08:52)
[2024-07-30] MEDS: hydroCHLOROthiazide 25 MG TAB PO SCH (08:52)
--- NOTE | 2024-07-30 11:09 | DVHPN2 ---
Reviewed: Care Plan, H&P, Labs, Medications, Previous Orders, Radiology Changes from previous H/P or p: No Changes Eyes: No Pain, No Vision change, No Conjunctivae inflammation, No Eyelid inflammation, No Other, No Redness ENT: No Ear pain, No Ear discharge, No Nose pain, No Nose discharge, No Nose congestion, No Mouth pain, No Mouth swelling, No Throat pain, No Throat swelling, No Other Cardiovascular: No Chest Pain, No Palpitations, No Orthopnea, No Paroxysmal Noc. Dyspnea, No Edema; Lt Headedness; No Other Respiratory: No Cough, No Dry, No Shortness of breath, No SOB with excertion, No Wheezing, No Hemoptysis, No Pleuritic Pain, No Sputum, No Other Gastrointestinal: Nausea, Vomiting, Abdominal Pain, Diarrhea; No Constipation, No Melena, No Hematochezia, No Other Genitourinary: No Dysuria, No Frequency, No Incontinence, No Hematuria, No Retention, No Other Musculoskeletal: No other, No neck pain, No shoulder pain, No arm pain, No back pain, No hand pain, No leg pain, No foot pain Skin: No Rash, No Lesions, No Jaundice, No Bruising, No Other Objective Vitals Vital Signs Date Time Temp Pulse Resp B/P (MAP) Pulse Ox O2 Delivery O2 Flow Rate FiO2 07/30/24 10:19 160/91 07/30/24 09:00 98.2 59 17 94 98.2 07/29/24 19:30 Room Air* 0 21 Intake/Output Intake and Output 07/30/24 07:00 Intake Total 1790 ml Output Total 450 ml Balance 1340 ml Intake Oral 1590 ml IV Total 200 ml Output Urine Total 450 ml # Voids 7 Medications Current Medications Medications Dose Ordered Sig/Erik Route Start Time Stop Time Status Last Admin Dose Admin Vancomycin HCl 0 ml @ 0 mls/hr UD IV 07/28/24 09:00 Piperacillin Sod/ Tazobactam Sod 100 ml @ 25 mls/hr Q8HR IV 07/28/24 14:00 07/30/24 05:34 25 MLS/HR Acetaminophen/ Hydrocodone Bitart 1 tab Q4HP PRN PO 07/28/24 09:00 Acetaminophen 650 mg Q6HP PRN PO 07/28/24 09:00 Morphine Sulfate 2 mg Q4HPRN PRN IV 07/28/24 09:00 Pantoprazole Sodium 40 mg DAILY IV 07/28/24 10:00 07/30/24 08:51 40 MG Meclizine HCl 50 mg Q4HPRN PRN PO 07/28/24 09:15 07/30/24 05:33 50 MG Vancomycin HCl 750 mg/Dextrose 100 ml @ 100 mls/hr Q12H IV 07/28/24 21:00 07/30/24 08:52 100 MLS/HR Metoclopramide HCl 5 mg Q6HR PRN IV 07/28/24 17:00 07/28/24 21:22 5 MG Lorazepam 1 mg ONCE PRN IV 07/28/24 19:30 Lisinopril 20 mg BID PO 07/30/24 10:00 07/30/24 08:52 20 MG Hydrochlorothiazide 25 mg DAILY PO 07/30/24 10:00 07/30/24 08:52 25 MG Hydralazine HCl 10 mg Q6HP PRN IV 07/30/24 01:30 07/30/24 10:19 10 MG Laboratory Results Laboratory Tests 07/29/24 07:24 Urinalysis Test 07/28/24 00:08 Urine Color Light-yellow (Yellow) Urine Clarity Turbid (Clear) H Urine pH 8.0 (5.0-9.0) Urine Specific [place] 1.017 (1.001-1.035) Urine Protein Negative (Negative) Urine Ketones Negative (Negative) Urine Blood Negative /uL (Negative) Urine Nitrite Negative (Negative) Urine Bilirubin Negative (Negative) Urine Urobilinogen Normal mg/dL (Negative) Urine Leukocyte Esterase Negative /uL (Negative) Urine RBC 1 /hpf (0 - 3) Urine WBC None seen /hpf (0 - 3) Urine Squamous Epithelial Cells None seen /hpf (<5) Urine Bacteria None seen /hpf (None Seen) Urine Yeast (Budding) Occasional /hpf (None Urine Glucose Normal mg/dL (Normal) Labs and/or images reviewed: Labs reviewed by me, Image(s) reviewed by me Assessment/Plan Assessment/Plan Sepsis secondary to community-acquired pneumonia Community-acquired pneumonia: Zosyn: Vancomycin Possible food poisoning: Continue Zosyn Acute dehydration: IV fluids History of hypertension Hypercholesterolemia Anxiety History of vertigo: Consult by Neurology Dr. Fitzgerald appreciated, CT head negative MRI brain negative CT abdomen pelvis without contrast negative CT head negative Time spent 55 minutes Patient is full code Plan discussed with: Patient Date of Service: Jul 30, 2024 Billing Provider: STEPHANIE CAROLINA MD Common Visit Codes: [id number] INP/OBS CARE(HIGH) STEPHANIE CAROLINA MD Jul 30, 2024 11:09
--- NOTE | 2024-07-30 15:32 | DVH ---
CHEST RADIOGRAPH Indication: Possible aspiration pneumonia Technique: Single frontal view of the chest was obtained COMPARISON: None FINDINGS: Lines and Tubes: None Lungs: Mild congestion Pleura: No effusion. No pneumothorax. Cardiomediastinal contours: Unremarkable Bones: Unremarkable IMPRESSION: Mild congestion
[2024-07-30] MEDS: ACETAMINOPHEN 325 MG TAB PO PRN (20:25)
[2024-07-31] VITALS (8 sets, daily range): BP systolic 113–154; BP diastolic 74–86; PULSE 66–86; RESP 16–19; TEMP 97.5–98.7; O2SAT 94–98
[2024-07-31 06:58] LABS: Basophils # (auto) 0.1 10 ^3/uL (0-0.2); Basophils % (auto) 0.5 % (0.0-2.0); Eosinophils # (auto) 0.4 10 ^3/uL (0-0.8); Eosinophils % (auto) 3.3 % (0.0-7.0); Hematocrit 47.4 % (41.0-53.0); Hemoglobin 16.3 g/dL (13.5-17.5); Lymphocytes # (auto) 2.2 10 ^3/uL (0.4-5.4); Lymphocytes % (auto) 19.4 % (10.0-50.0); Mean Corpuscular Hemoglobin 31.3 pg (28.0-32.0); Mean Corpuscular Hgb Conc. 34.4 g/dL (32.0-36.0); Mean Corpuscular Volume 91.2 fL (80.0-100.0); Monocytes % (auto) 8.6 % (0.0-12.0); Neutrophils # (auto) 7.7 10 ^3/uL (1.6-8.6); Neutrophils % (auto) 68.2 % (37.0-80.0); Nucleated Red Blood Cells % 0.2 %; Platelet Count (auto) 218 10^3/uL (140-450); Red Cell Distribution Width 13.2 % (11.8-14.3); White Blood Cell 11.2 10^3/uL (4.4-10.8)
[2024-07-31 07:30] LABS: Alanine Aminotransferase 23 U/L (7-40); Alkaline Phosphatase 71 U/L (46-116); Anion Gap 11 (5-15); BUN/Creatinine Ratio 14.6 (10.0-20.0); Blood Urea Nitrogen 20 mg/dL (9-23); Calcium 10.1 mg/dL (8.7-10.4); Carbon Dioxide 24 mmol/L (20-31); Chloride 105 mmol/L (98-107); Glucose 99 mg/dL (74-106); Potassium 3.7 mmol/L (3.5-5.1); Sodium 140 mmol/L (136-145)
[2024-07-31 07:31] LABS: Albumin 4.4 g/dL (3.2-4.8); Aspartate Aminotransferase 20 U/L (13-40); Bilirubin, Total 0.9 mg/dL (0.2-1.0); Total Protein 6.9 g/dL (5.7-8.2)
[2024-07-31 08:57] LABS: Large Platelets FEW; Platelet Estimate Adequate
[2024-07-31 12:07] LABS: Urine Bacteria FEW /hpf (None Seen); Urine Blood 1+ /uL (Negative); Urine Clarity Clear (Clear); Urine Color Light-Yellow (Yellow); Urine Hyaline Cast FEW /lpf (0 - 2); Urine Protein, UAD Negative (Negative); Urine Sperm PRESENT /hpf (None Seen); Urine Squamous Epithelial Cell None Seen /hpf (<5); Urine Urobilinogen Normal (Negative); Urine WBC 117 /hpf (0 - 3)
[2024-07-31 12:26] LABS: Opiate Scree,Urine Neg (NEGATIVE)
[2024-07-31 12:32] LABS: Amphetamine Screen, Urine Neg (NEGATIVE); Barbiturate Scree,Urine Neg (NEGATIVE); Benzodiazephine Screen, Urine Neg (NEGATIVE); Cannabinoid Screen, Urine Neg (NEGATIVE); Cocaine Screen, Urine Neg (NEGATIVE); Phencyclidine Screen, Urine Neg (NEGATIVE)
--- NOTE | 2024-07-31 19:32 | DVHPN2 ---
Progress Note - Dictate Date Seen: Jul 31, 2024 Medical Necessity Reason Pt with a Central, PICC or Fol: No Subjective Mr. Amador is a 69 years old right-handed gentleman with a history of hypertension, dyslipidemia, he was admitted to the [facility] on 07/28/2024 with a chief company of dizziness. I have seen and examined the patient, I have discussed with her nurse, he is doing bed, the dizziness is almost gone, he moves around, he bent and raised the head from me without triggered dizziness Urinalysis, 07/28/2024: Unremarkable WBC/HB/PLT/MCV, 07/28/2024: 13.6/15/226/91.5 BMP, 07/28/2024: Unremarkable CT head, 07/28/2024: 1. No acute intracranial abnormality detected. 2. Age- related cerebral atrophy and small vessel ischemic changes. 3. Right maxillary sinus polyp MRI head, 07/29/2024: 1. No acute intracranial process identified. 2. Scattered nonspecific FLAIR hyperintense foci in the bilateral cerebral white matter without restricted diffusion typically reflect chronic microvascular ischemic changes. The differential diagnosis includes hypoxic/ischemic etiologies (atherosclerotic, hypertension, migraine), inflammatory/infectious etiologies (demyelination disorders) or other. Recommend clinical correlation and further evaluation as clinically warranted. vital signs Vital Sign Date Time Temp Pulse Resp B/P (MAP) Pulse Ox O2 Delivery O2 Flow Rate FiO2 07/31/24 17:00 97.8 72 18 119/80 (93) 95 97.8 07/31/24 08:00 Room Air* 0 21 Total Intake and Output 07/30/24 07/30/24 07/31/24 15:00 23:00 07:00 Intake Total 100 ml 1150 ml 200 ml Balance 100 ml 1150 ml 200 ml medications Current Medications Medications Dose Ordered Sig/Erik Route Start Time Stop Time Status Last Admin Dose Admin Vancomycin HCl 0 ml @ 0 mls/hr UD IV 07/28/24 09:00 Piperacillin Sod/ Tazobactam Sod 100 ml @ 25 mls/hr Q8HR IV 07/28/24 14:00 07/31/24 13:58 25 MLS/HR Acetaminophen/ Hydrocodone Bitart 1 tab Q4HP PRN PO 07/28/24 09:00 Acetaminophen 650 mg Q6HP PRN PO 07/28/24 09:00 07/31/24 17:41 650 MG Morphine Sulfate 2 mg Q4HPRN PRN IV 07/28/24 09:00 Pantoprazole Sodium 40 mg DAILY IV 07/28/24 10:00 07/31/24 09:01 40 MG Meclizine HCl 50 mg Q4HPRN PRN PO 07/28/24 09:15 07/31/24 15:30 50 MG Vancomycin HCl 750 mg/Dextrose 100 ml @ 100 mls/hr Q12H IV 07/28/24 21:00 07/31/24 09:05 100 MLS/HR Metoclopramide HCl 5 mg Q6HR PRN IV 07/28/24 17:00 07/28/24 21:22 5 MG Lorazepam 1 mg ONCE PRN IV 07/28/24 19:30 Lisinopril 20 mg BID PO 07/30/24 10:00 07/31/24 09:01 20 MG Hydrochlorothiazide 25 mg DAILY PO 07/30/24 10:00 07/31/24 09:00 25 MG Hydralazine HCl 10 mg Q6HP PRN IV 07/30/24 01:30 07/30/24 10:19 10 MG objective General: the patient is well developed and nourished. No acute distress. MENTAL STATUS: Awake and alert. Oriented to person, place, time and general circumstances. Able to give personal history SPEECH, LANGUAGE, HIGHER CORTICAL FUNCTION: no aphasia or dysathria. CRANIAL NERVES: Pupils are equal, round and reactive. EOMs full and conjugate. No nystagmus. Facial sensation intact in all three divisions bilaterally. Mandibular strength intact. Facial muscles symmetrical and strength intact. SENSATION: Sensation to touch and pinprick is normal. MOTOR: Normal tone in the upper and lower extremity. Normal muscle bulk. No fasciculations. No abnormal movements or posturing. Muscle strength of the major groups in the extremities is 5/5. REFLEXES: Deep tendon reflexes are symmetrical. No pathological reflexes. CEREBELLAR/COORDINATION: Finger to nose ise normal bilaterally. GAIT/STATION: deferred laboratory and microbiology Laboratory Tests 07/31/24 06:26 Test 07/31/24 06:26 Range/Units Serum Glucose 99 74-106 mg/dL Problem List Dizziness/vertigo Migraine headache equivalent Rule out stroke and other central nervous system pathology History is of headache, he may have migraine headache without aura Assessment/Plan Monitoring Supportive treatment Telemetry Meclizine as needed basis. He has been advised to avoid this medication More recommendation per clinical course Prognosis poor Dietary Evaluation Review Comments: follow current diet regimen Expected Outcomes/Goals: no GI symptoms Plan discussed with: Patient, Other Total Time (mins): 40 KYRA DORADO MD Jul 31, 2024 19:32
[2024-08-01 01:00] VITALS: BP 104/70; PULSE 65; RESP 18; TEMP 98.1; O2SAT 94
[2024-08-01 05:00] VITALS: BP 98/63; PULSE 76; RESP 18; TEMP 98.1; O2SAT 95
[2024-08-01 06:21] LABS: Anion Gap 6 (5-15); Carbon Dioxide 26 mmol/L (20-31); Chloride 106 mmol/L (98-107); Potassium 4.2 mmol/L (3.5-5.1); Sodium 138 mmol/L (136-145)
[2024-08-01 06:22] LABS: Calcium 10.3 mg/dL (8.7-10.4)
[2024-08-01 06:26] LABS: Glucose 103 mg/dL (74-106)
[2024-08-01 06:27] LABS: BUN/Creatinine Ratio 10.2 (10.0-20.0); Blood Urea Nitrogen 18 mg/dL (9-23)
[2024-08-01 08:00] VITALS: PULSE 77; RESP 20; O2SAT 97
[2024-08-01 09:00] VITALS: BP 117/82; PULSE 77; RESP 20; TEMP 98.5; O2SAT 97
--- NOTE | 2024-08-01 12:17 | DVHDS2 ---
Discharge Summary Date of Admission Jul 28, 2024 at 08:54 Date of Discharge: Aug 01, 2024 Admitting Diagnosis Shortness of breath Wounds: None Labs/Diagnostic Data: Laboratory Results Test 08/01/24 05:24 07/31/24 19:54 07/31/24 11:32 07/31/24 06:26 Sodium Level 138 mmol/L (136-145) Potassium Level 4.2 mmol/L (3.5-5.1) Chloride Level 106 mmol/L (98-107) Carbon Dioxide Level 26 mmol/L (20-31) Anion Gap 6 (5-15) Blood Urea Nitrogen 18 mg/dL (9-23) Creatinine 1.76 mg/dL (0.700-1.30) Glomerular Filtration Rate Calc 42 mL/min (>90) BUN/Creatinine Ratio 10.2 (10.0-20.0) Serum Glucose 103 mg/dL (74-106) Calcium Level 10.3 mg/dL (8.7-10.4) Vancomycin Level Trough 13.9 ug/mL (5-10) Urine Color Light-yellow (Yellow) Urine Clarity Clear (Clear) Urine pH 6.0 (5.0-9.0) Urine Specific [place] 1.010 (1.001-1.035) Urine Protein Negative (Negative) Urine Ketones Trace (Negative) Urine Blood 1+ /uL (Negative) Urine Nitrite Negative (Negative) Urine Bilirubin Negative (Negative) Urine Urobilinogen Normal mg/dL (Negative) Urine Leukocyte Esterase 3+ /uL (Negative) Urine RBC 5 /hpf (0 - 3) Urine WBC 117 /hpf (0 - 3) Urine Squamous Epithelial Cells None seen /hpf (<5) Urine Bacteria Few /hpf (None Seen) Urine Hyaline Casts Few /lpf (0 - 2) Urine Sperm Present /hpf (None Seen) Urine Glucose Trace mg/dL (Normal) Urine Opiates Screen Neg (NEGATIVE) Urine Fentanyl Screen Neg (NEGATIVE) Urine Barbiturates Screen Neg (NEGATIVE) Urine Phencyclidine Screen Neg (NEGATIVE) Urine Amphetamines Screen Neg (NEGATIVE) Urine Benzodiazepines Screen Neg (NEGATIVE) Urine Cocaine Screen Neg (NEGATIVE) Urine Cannabinoids Screen Neg (NEGATIVE) White Blood Count 11.2 10^3/uL (4.4-10.8) Red Blood Count 5.20 10^6/uL (4.5-5.90) Hemoglobin 16.3 g/dL (13.5-17.5) Hematocrit 47.4 % (41.0-53.0) Mean Corpuscular Volume 91.2 fL (80.0-100.0) Mean Corpuscular Hemoglobin 31.3 pg (28.0-32.0) Mean Corpuscular Hemoglobin Concent 34.4 g/dL (32.0-36.0) Red Cell Distribution Width 13.2 % (11.8-14.3) Platelet Count 218 10^3/uL (140-450) Mean Platelet Volume 8.9 fL (6.9-10.8) Neutrophils (%) (Auto) 68.2 % (37.0-80.0) Lymphocytes (%) (Auto) 19.4 % (10.0-50.0) Monocytes (%) (Auto) 8.6 % (0.0-12.0) Eosinophils (%) (Auto) 3.3 % (0.0-7.0) Basophils (%) (Auto) 0.5 % (0.0-2.0) Neutrophils # (Auto) 7.7 10 ^3/uL (1.6-8.6) Lymphocytes # (Auto) 2.2 10 ^3/uL (0.4-5.4) Monocytes # (Auto) 1.0 10 ^3/uL (0-1.3) Eosinophils # (Auto) 0.4 10 ^3/uL (0-0.8) Basophils # (Auto) 0.1 10 ^3/uL (0-0.2) Nucleated Red Blood Cells 0.2 % Platelet Estimate Adequate Large Platelets Few Total Bilirubin 0.9 mg/dL (0.2-1.0) Aspartate Amino Transferase (AST) 20 U/L (13-40) Alanine Aminotransferase (ALT) 23 U/L (7-40) Alkaline Phosphatase 71 U/L (46-116) Total Protein 6.9 g/dL (5.7-8.2) Albumin 4.4 g/dL (3.2-4.8) Test 07/28/24 02:52 07/28/24 01:50 07/28/24 00:08 Troponin I High Sensitivity 7 ng/L (</=54) B-Type Natriuretic Peptide 16.41 pg/mL (0-100) Urine Yeast (Budding) Occasional /hpf (None Other Laboratory Tests 08/01/24 05:24 07/31/24 06:26 Brief Hx & Hospital Course: Discharge summary Dictated after patient left AMA 59-year-old male with a history of hypertension hypercholesterolemia anxiety chronic vertigo came in complaining of generalized weakness and shortness of breaths found to have community-acquired pneumonia treated with the Zosyn and vancomycin acute dehydration resolved with the IV fluids seen by Neurology Dr. Fitzgerald for vertigo CT head negative MRI brain negative CT abdomen pelvis without contrast negative CT head negative while awaiting further stabilization patient decided to leave AMA and left AMA. Consequences and complications including possible explained to the patient and he verbalized understanding General condition Satisfactory at the time of leaving AMA per nurse's notes Consults/Reason for consult None Operations or Procedures None Condition at Discharge: Fair Final Diagnosis/Problems List Sepsis secondary to community-acquired pneumonia Community-acquired pneumonia: Zosyn: Vancomycin Possible food poisoning: Continue Zosyn Acute dehydration: IV fluids History of hypertension Hypercholesterolemia Anxiety History of vertigo: Consult by Neurology Dr. Fitzgerald appreciated, CT head negative MRI brain negative CT abdomen pelvis without contrast negative CT head negative Discharge Disposition: AMA Discharge Instruct/Medications Diet comment: Not applicable Patient left AMA Activity comment: Not Applicable Patient left AMA Follow Up/Referral: Not applicable Patient left AMA Medications: Not applicable Patient left AMA 35 (Time Taken for discharge summary 35 minutes) Discharge Statement: "Patient was advised to return to the ER or call 911 if any headaches, dizziness, shortness of breath, chest pain, abdominal pain, bleeding, fevers, or worsening of medical condition. Patient was counseled about treatment plan, medications, possible side effects, patientverbalized understanding. All questions were answered to the best of my ability. This discharge took greater then 30 minutes in planning, reviewing documentation, counseling the patient, and discussing with other team members." ASSESSMENT ASSESSMENT Hospital Course Left AMA Assessment Date of Service: Aug 01, 2024 Billing Provider: STEPHANIE CAROLINA MD Common Visit Codes: 73837-PSU/OBS DISCH DAY >30min STEPHANIE CAROLINA MD Aug 01, 2024 12:17
== END 2024-08-01 10:03 | disposition left against medical advice (07) | DRG 871 ==
LOC: EDBD 00:49 → ER 00:49 → OVERFLOW 08:54 → WEST WING 10:45
PROVIDERS: ATTEND Family Medicine
DX: A41.50 Gram-negative sepsis, unspecified (principal); J15.69 Pneumonia due to other Gram-negative bacteria; J15.9 Unspecified bacterial pneumonia; G43.909 Migraine, unspecified, not intractable, without status migrainosus; I10 Essential (primary) hypertension; Z53.29 Procedure and treatment not carried out because of patient's decision for other reasons; F41.9 Anxiety disorder, unspecified; E78.00 Pure hypercholesterolemia, unspecified; E86.0 Dehydration; A05.9 Bacterial foodborne intoxication, unspecified; Z90.49 Acquired absence of other specified parts of digestive tract; Z82.49 Family history of ischemic heart disease and other diseases of the circulatory system
CPT/HCPCS: 36415; 70450; 70551; 71045; 74176; 80048; 80053; 80202; 80307; 81001; 83880; 84484; 85025; 93005; G0378; J2405; J2470; J2543; J7060